=== PATIENT | female | born 1980 | race Caucasian/White ===

== ENCOUNTER 2024-03-22 14:14 | Emergency (ER) | payer MEDICAID ==
[~2024-03-22] VITALS: Ht 170.2 cm; Wt 84.1 kg
[2024-03-22] MEDS: LIDOcaine 1% W/epiNEPHrine 1:100,000 20ml vial SQ ONE (15:48)
[2024-03-22] MEDS ORDERED: HYDR-3965 PO (16:12)
[2024-03-22 16:16] VITALS: BP 132/78; PULSE 78; RESP 14; TEMP 98.1; O2SAT 97
== END 2024-03-22 16:17 | disposition home or self-care (01) ==
LOC: ER 14:15
DX: S62.617A Displaced fracture of proximal phalanx of left little finger, initial encounter for closed fracture (principal); Z88.2 Allergy status to sulfonamides; Z88.8 Allergy status to other drugs, medicaments and biological substances; X58.XXXA Exposure to other specified factors, initial encounter; Y93.89 Activity, other specified; Y92.89 Other specified places as the place of occurrence of the external cause; Y99.8 Other external cause status
CPT/HCPCS: 29130; 73130; 99283